=== PATIENT | female | born 1965 | race Caucasian/White ===

== ENCOUNTER 2016-11-23 11:33 | Day surgery (SDC) | payer OTHER ==
[2016-11-23] MEDS ORDERED: LR 1,000 ML IV ONE (12:00)
[2016-11-23] MEDS ORDERED: INDOMETHACIN 50 MG SUPP PR PRN (12:57)
--- NOTE | 2016-11-23 12:57 | PDGENHP ---
History & Physical Chief Complaint: iron deficiency anemia History of Present Illness: 51 year old female with PSC presents for evaluation of iron deficiency anemia as well as diarrhea. Diarrhea present for 3-6 months. >10 Bms some days. No nocturnal bowel movements Pertinent Past, Social, Family History: PMHx: DM, PSC Relevant Physical Exam: HEENT: anicteric sclera. CV: RRR +s1s2. Lungs :CTAB. Abd; soft, nt, + bs Cardiorespiratory Assessment: asa 3
--- NOTE | 2016-11-23 12:59 | PDANEPAE ---
ANE History of Present Illness EGD/colonoscopy for anemia/diarrhea/reflux ANE Past Medical History - Cardiovascular History Hx Hypertension: No Hx Arrhythmias: No Hx Chest Pain: No Hx Coronary Artery / Peripheral Vascular Disease: No Hx CHF / Valvular Disease: No Hx Palpitations: No - Pulmonary History Hx COPD: No Hx Asthma/Reactive Airway Disease: No Hx Recent Upper Respiratory Infection: No Hx Oxygen in Use at Home: No Hx Sleep Apnea: No Sleep Apnea Screening Result - Last Documented: Negative - Neurologic History Hx Cerebrovascular Accident: No Hx Seizures: No Hx Dementia: No - Endocrine History Hx Diabetes: No - Renal History Hx Renal Disorders: No - Liver History Hx Hepatic Disorders: No - Neurological & Psychiatric Hx Hx Neurological and Psychiatric Disorders: Yes Neurological / Psychiatric History Comment: depression - Cancer History Hx Cancer: No - Congenital Disorder History Hx Congenital Disorders: No - GI History Hx Gastrointestinal Disorders: Yes Gastrointestinal History Comment: reflux. diarrhea - Other Health History Other Health History: none - Chronic Pain History Chronic Pain: No - Surgical History Prior Surgeries: appy. tonsillectomy. wisdom teeth ANE Review of Systems Review of Systems: - Exercise capacity METS (RN): 4 METS ANE Patient History - Allergies Allergies/Adverse Reactions: No Known Allergies Allergy (Verified 09/29/16 16:51) - Home Medications Home medications: home medication list seen and reviewed Home Medications: Citalopram 09/29/16 [Last Taken 11/21/16] Estradiol 09/29/16 [Last Taken 11/21/16] - NPO status NPO Status: no food or drink >8 hours NPO Since - Liquids (Date): 11/23/16 NPO Since - Liquids (Time): 05:00 NPO Since - Solids (Date): 11/21/16 NPO Since - Solids (Time): 19:00 - Anes Hx Anes Hx: no prior problems - Smoking Hx Smoking Status: Never smoked - Alcohol Use Alcohol Use: None - Family Anes Hx Family Anes Hx: none Family Hx Anesthesia Complications: none ANE Labs/Vital Signs - Vital Signs Blood Pressure: 127/71 Heart Rate: 80 Respiratory Rate: 16 O2 Sat (%): 94 Height: 165.1 cm Weight: 127.006 kg ANE Physical Exam - Airway Neck exam: FROM Mallampati Score: Class 1 Mouth exam: normal dental/mouth exam - Pulmonary Pulmonary: no respiratory distress - Cardiovascular Cardiovascular: regular rate and rhythym - ASA Status ASA Status: I ANE Anesthesia Plan Anesthesia Plan: GA with mask (Propofol)
[2016-11-23] MEDS ORDERED: NS 500 ML IV SCH (13:00)
[2016-11-23] MEDS ORDERED: fentaNYL 100 MCG/2 ML INJ ONE (13:02)
[2016-11-23] MEDS ORDERED: PROPOFOL/EMULSION 500 MG/50 ML BOTTLE IV ONE (13:03)
[2016-11-23] MEDS ORDERED: LIDOCAINE 2% 100 MG/5 ML SYR ONE (13:04)
--- NOTE | 2016-11-23 13:20 | GIREPORT ---
[facility] - Endoscopy Department Patient Name: Ann Salazar Procedure Date: 11/23/2016 1:06 PM Patient Type: Outpatient Attending MD/ ER Physician: Josh Donnelly MD Procedure: Upper GI endoscopy Indications: Iron deficiency anemia, Diarrhea Patient Profile: 51 year old female presents for evaluation of iron deficiency anemia as well as diarrhea. Providers: Josh Donnelly MD Medicines: Monitored Anesthesia Care Complications: No immediate complications. Estimated blood loss: Minimal. Description of Procedure: After obtaining informed consent, the endoscope was passed under direct vision. Throughout the procedure, the patient's blood pressure, pulse, and oxygen saturations were monitored continuous ly. The Endoscope was introduced through the mouth, and advanced to the second part of duodenum. The upper GI endoscopy was accomplished without difficulty. The patient tolerated the procedure well . Findings: Grade II varices were found in the lower third of the esophagus. They were medium in size. A small hiatal hernia was present. Patchy mildly erythematous mucosa was found in the gastric body and in the gastric antrum. Biops ies were taken with a cold forceps for histology. The examined duodenum was normal. Biopsies for histology were taken with a cold forceps for evaluation of celiac disease. Estimated Blood Loss: Estimated blood loss was minimal. Post Op Diagnosis: - Grade II esophageal varices. Treatment not successful. - Small hiatal hernia. - Erythematous mucosa in the gastric body and antrum. Biopsied. - Normal examined duodenum. Biopsied. - Etiology? No cause of anemia seen. Await biopsy results. Proceed with colonoscopy. Needs repeat EGD in 6 weeks for banding. Will discuss with patient. Recommendation: - Perform a colonoscopy today. - Repeat upper endoscopy in 6 weeks for endoscopic band ligation. - Await pathology results. - Thank you for allowing me to participate in the care of your patient. Attending Participation: I personally performed the entire procedure. Josh Donnelly MD Josh Donnelly MD 11/23/2016 1:20:07 PM Number of Addenda: 0 Note Initiated On: 11/23/2016 1:06 PM [email or web address]
[2016-11-23] MEDS ORDERED: ONDANSETRON 4 MG/2 ML VIAL IVP PRN (13:27)
[2016-11-23] MEDS ORDERED: NALOXONE HCL 0.4 MG/ML INJ IVP PRN (13:27)
[2016-11-23] MEDS ORDERED: fentaNYL 100 MCG/2 ML INJ IVP PRN (13:27)
[2016-11-23] MEDS ORDERED: DEXAMETHASONE 4 MG/ML VIAL IVP PRN (13:27)
[2016-11-23] MEDS ORDERED: ACETAMINOPHEN 500 MG TAB PO PRN (13:27)
[2016-11-23] MEDS ORDERED: ALBUTEROL 3 ML DEYVIAL IH PRN (13:27)
[2016-11-23] MEDS ORDERED: PROMETHAZINE HCL 25 MG/ML INJ IVP PRN (13:27)
[2016-11-23] MEDS ORDERED: MEPERIDINE 25 MG/ML SYR IVP PRN (13:27)
[2016-11-23] MEDS ORDERED: LABETALOL HCL 50 MG/10 ML SYR IVP PRN (13:27)
[2016-11-23] MEDS ORDERED: LR 500 ML IV PRN (13:27)
[2016-11-23] MEDS ORDERED: METOCLOPRAMIDE 10 MG/2 ML VIAL IVP PRN (13:27)
[2016-11-23 13:55] VITALS: PULSE 73
--- NOTE | 2016-11-23 14:00 | GIREPORT ---
[facility] Surgical Services - Endoscopy Department Patient Name: Ann Salazar Procedure Date: 11/23/2016 12:55 PM Patient Type: Outpatient Attending MD/ ER Physician: Josh Donnelly MD Procedure: Colonoscopy Indications: Clinically significant diarrhea of unexplained origin, Iron deficiency anemia Patient Profile: 51 year old female presents for evaluation of iron deficiency anemia as well as diarrhea. Providers: Josh Donnelly MD Medicines: Monitored Anesthesia Care Complications: No immediate complications. Estimated blood loss: Minimal. Description of Procedure: After obtaining informed consent, the scope was passed under direct vision. Throughout the proce dure, the patient's blood pressure, pulse, and oxygen saturations were monitored continuously. The Colonoscope was introduced through the anus and advanced to the terminal ileum. The colonoscopy was performed without difficulty. The patient tolerated the procedure well. The quality of the bowel preparation was adequate to identify polyps 6 mm and larger in size. The terminal ileum, ileocec al valve, appendiceal orifice, and rectum were photographed. Findings: The perianal and digital rectal examinations were normal. Pertinent negatives include no palpabl e rectal lesions. The terminal ileum appeared normal. Biopsies were taken with a cold forceps for histology. Three sessile polyps were found in the sigmoid colon, descending colon and ascending colon. The polyps were 3 to 4 mm in size. These polyps were removed with a cold snare. Resection and retrie tameka were complete. Biopsies for histology were taken with a cold forceps for evaluation of microscopic colitis. Estimated Blood Loss: Estimated blood loss was minimal. Post Op Diagnosis: - The examined portion of the ileum was normal. Biopsied. - Three 3 to 4 mm polyps in the sigmoid colon, in the descending colon and in the ascending colon, removed with a cold snare. Resected and retriev ed. - Biopsies were taken with a cold forceps for evaluation of microscopic colitis. Recommendation: - Discharge patient to home (with escort). - Resume previous diet. - Continue present medications. - Repeat colonoscopy in 3 years for surveillance. - Thank you for allowing me to participate in the care of your patient. Attending Participation: I personally performed the entire procedure. Josh Donnelly MD Josh Donnelly MD 11/23/2016 2:00:06 PM Number of Addenda: 0 Note Initiated On: 11/23/2016 12:55 PM Total Procedure Duration Time 0 hours 18 minutes 35 seconds [email or web address]}
[2016-11-23 14:07] VITALS: TEMP 97.7
--- NOTE | 2016-11-23 14:18 | POSTANESTH ---
Post Anesthetic Evaluation Cardiovascular Status: Normal, Stable Respiratory Status: Normal, Stable Level of Consciousness/Mental Status: Can Participate in Eval, Mildly Sleepy, Arousable Pain Control: Adequate, Prn Tx Ordered Nausea/Vomiting Control: Adequate, Prn Tx Ordered Complications Possibly Related to Anesthesia: None Noted
[2016-11-23 14:33] VITALS: BP 119/73; RESP 16
[2016-11-23 15:03] VITALS: O2SAT 95
== END 2016-11-23 15:04 | disposition home or self-care (01) ==
LOC: FSGY 11:33
PROVIDERS: ATTEND Internal Medicine Gastroenterology
PROC: 0DBK8ZX Excision of Ascending Colon, Via Natural or Artificial Opening Endoscopic, Diagnostic (ICD-10-PCS; principal; 2016-11-23 13:00)
PROC: 0DBE8ZX Excision of Large Intestine, Via Natural or Artificial Opening Endoscopic, Diagnostic (ICD-10-PCS; principal; 2016-11-23 13:00)
PROC: 0DB68ZX Excision of Stomach, Via Natural or Artificial Opening Endoscopic, Diagnostic (ICD-10-PCS; principal; 2016-11-23 13:00)
PROC: 0DBM8ZX Excision of Descending Colon, Via Natural or Artificial Opening Endoscopic, Diagnostic (ICD-10-PCS; principal; 2016-11-23 13:00)
PROC: 0DBN8ZX Excision of Sigmoid Colon, Via Natural or Artificial Opening Endoscopic, Diagnostic (ICD-10-PCS; principal; 2016-11-23 13:00)
PROC: 0DB98ZX Excision of Duodenum, Via Natural or Artificial Opening Endoscopic, Diagnostic (ICD-10-PCS; principal; 2016-11-23 13:00)
PROC: 0DBB8ZX Excision of Ileum, Via Natural or Artificial Opening Endoscopic, Diagnostic (ICD-10-PCS; principal; 2016-11-23 13:00)
DX: D12.2 Benign neoplasm of ascending colon (principal); D12.4 Benign neoplasm of descending colon; D12.5 Benign neoplasm of sigmoid colon; D50.9 Iron deficiency anemia, unspecified; R19.7 Diarrhea, unspecified; K83.0 Cholangitis; K44.9 Diaphragmatic hernia without obstruction or gangrene; E11.9 Type 2 diabetes mellitus without complications
CPT/HCPCS: J2001; J2704; J3010

== ENCOUNTER 2017-01-11 09:59 | Day surgery (SDC) | payer OTHER ==
[2017-01-11] MEDS ORDERED: LR 1,000 ML IV ONE (10:31)
[2017-01-11 10:42] VITALS: PULSE 85
--- NOTE | 2017-01-11 11:35 | PDANEPAE ---
ANE History of Present Illness primary biliary cholangitis, for esophageal varices therapy ANE Past Medical History - Cardiovascular History Hx Hypertension: No Hx Arrhythmias: No Hx Chest Pain: No Hx Coronary Artery / Peripheral Vascular Disease: No Hx CHF / Valvular Disease: No Hx Palpitations: No - Pulmonary History Hx COPD: No Hx Asthma/Reactive Airway Disease: No Hx Recent Upper Respiratory Infection: No Hx Oxygen in Use at Home: No Hx Sleep Apnea: No Sleep Apnea Screening Result - Last Documented: Negative Pulmonary History Comment: hx of snoring, negative S02 sat study about six months - Neurologic History Hx Cerebrovascular Accident: No Hx Seizures: No Hx Dementia: No - Endocrine History Hx Diabetes: No Hypothyroid: No Obesity: severe - Renal History Hx Renal Disorders: No - Liver History Hx Hepatic Disorders: No - Neurological & Psychiatric Hx Hx Neurological and Psychiatric Disorders: Yes Neurological / Psychiatric History Comment: depression - Cancer History Hx Cancer: No - Congenital Disorder History Hx Congenital Disorders: No - GI History GERD: moderate Hx Gastrointestinal Disorders: Yes Gastrointestinal History Comment: reflux. diarrhea - Other Health History Other Health History: none - Chronic Pain History Chronic Pain: No - Surgical History Prior Surgeries: EGD/COLONOSCOPY WITH BX'S. appy. tonsillectomy. wisdom teeth ANE Review of Systems Review of Systems: - Exercise capacity METS (RN): 4 METS ANE Patient History - Allergies Allergies/Adverse Reactions: No Known Allergies Allergy (Verified 09/29/16 16:51) - Home Medications Home Medications: Citalopram HS 09/29/16 [Last Taken 01/10/17 19:00] Estradiol HS 09/29/16 [Last Taken 01/10/17 19:00] Multivitamin DAILY 12/22/16 [Last Taken 01/10/17 19:00] Omeprazole HS 12/22/16 [Last Taken 01/10/17 19:00] - NPO status NPO Since - Liquids (Date): 01/10/17 NPO Since - Liquids (Time): 16:00 NPO Since - Solids (Date): 01/10/17 NPO Since - Solids (Time): 16:00 - Anes Hx Anes Hx: no prior problems - Smoking Hx Smoking Status: Never smoked - Alcohol Use Alcohol Use: None - Family Anes Hx Family Anes Hx: none Family Hx Anesthesia Complications: none ANE Labs/Vital Signs - Vital Signs Blood Pressure: 130/76 Heart Rate: 85 Respiratory Rate: 16 O2 Sat (%): 92 Height: 165.1 cm Weight: 129.274 kg ANE Physical Exam - Airway Neck exam: FROM Mallampati Score: Class 3 Mouth exam: normal dental/mouth exam - Pulmonary Pulmonary: no rales or rhonchi - Cardiovascular Cardiovascular: regular rate and rhythym - ASA Status ASA Status: III ANE Anesthesia Plan Anesthesia Plan: GA with mask
[2017-01-11] MEDS ORDERED: fentaNYL 100 MCG/2 ML INJ ONE (11:40)
[2017-01-11] MEDS ORDERED: PROPOFOL 200 MG/20 ML VIAL ONE ×2 (11:41)
[2017-01-11] MEDS ORDERED: RANITIDINE 50 MG/2 ML VIAL ONE (12:03)
[2017-01-11] MEDS ORDERED: INDOMETHACIN 50 MG SUPP PR PRN (12:28)
--- NOTE | 2017-01-11 12:28 | PDGENHP ---
History & Physical Chief Complaint: esophageal varices History of Present Illness: 51 year old female presents for esophageal banding. Pertinent Past, Social, Family History: PMHx: PBC with cirrhosis Relevant Physical Exam: HEENT: anicteric. Cv: RRR +s1s2. Lungs: CTAB. Abd: soft, nt, + bs Cardiorespiratory Assessment: ASA 3
[2017-01-11] MEDS ORDERED: NS 500 ML IV SCH (12:30)
[2017-01-11] MEDS ORDERED: NALOXONE HCL 0.4 MG/ML INJ IVP PRN (12:41)
--- NOTE | 2017-01-11 13:12 | GIREPORT ---
[facility] Surgical Services - Endoscopy Department Patient Name: Ann Salazar Procedure Date: 01/11/2017 12:19 PM Patient Type: Outpatient Attending MD/ ER Physician: Josh Donnelly MD Procedure: Upper GI endoscopy Indications: 1st degree variceal eradication (no prior bleeding) Patient Profile: 51 year old female with a history of PBC with liver cirrhosis presents for esophageal banding (known esophageal varices). Providers: Josh Donnelly MD Medicines: Monitored Anesthesia Care Complications: No immediate complications. Estimated blood loss: None. Description of Procedure: After obtaining informed consent, the endoscope was passed under direct vision. Throughout the procedure, the patient's blood pressure, pulse, and oxygen saturations were monitored continuously. The Endoscope was intro duced through the mouth, and advanced to the second part of duodenum. [facility] GI endoscopy was accomplished without difficulty. The patient tolerated th e procedure well. Findings: Grade II varices were found in the lower third of the esophagus. They w ere medium in size with 5 bands. Five bands were successfully placed with complete eradication, resulting in deflation of varices. There was no bleeding during the procedure. Patchy mildly erythematous mucosa was found in the gastric body and in the gastric antrum. This was biopsied previously. The examined duodenum was normal. Estimated Blood Loss: Estimated blood loss: none. Post Op Diagnosis: - Grade II esophageal varices. Completely eradicated. Banded. - Erythematous mucosa in the gastric body and antrum. - Normal examined duodenum. - No specimens collected. Recommendation: - Discharge patient to home (with escort). - Resume previous diet. - Continue present medications. - Repeat upper endoscopy in 3 weeks for endoscopic band ligation. - Thank you for allowing me to participate in the care of your patient. Attending Participation: I personally performed the entire procedure. Josh Donnelly MD Josh Donnelly MD 01/11/2017 1:11:51 PM This report has been signed electronicallyJosh Donnelly MD Number of Addenda: 0 Note Initiated On: 01/11/2017 12:19 PM [email or web address]}
[2017-01-11] MEDS ORDERED: fentaNYL 100 MCG/2 ML INJ IVP PRN (13:24)
[2017-01-11] MEDS ORDERED: OXYCODONE/APAP 5/325 TAB PO PRN (13:24)
[2017-01-11] MEDS ORDERED: HYDROCODONE/APAP 5/325 TAB PO PRN (13:24)
[2017-01-11] MEDS ORDERED: HYDROCODONE/APAP 5/325 TAB ONE (13:28)
--- NOTE | 2017-01-11 13:38 | POSTANESTH ---
Post Anesthetic Evaluation Cardiovascular Status: Normal, Stable Respiratory Status: Normal, Stable Level of Consciousness/Mental Status: Can Participate in Eval Pain Control: Adequate, Prn Tx Ordered Nausea/Vomiting Control: Adequate, Prn Tx Ordered Complications Possibly Related to Anesthesia: None Noted
[2017-01-11 13:47] VITALS: BP 107/79
[2017-01-11 13:58] VITALS: RESP 18
[2017-01-11 14:03] VITALS: TEMP 98.8; O2SAT 92
== END 2017-01-11 14:11 | disposition home or self-care (01) ==
LOC: FSGY 09:59
PROVIDERS: ATTEND Internal Medicine Gastroenterology
PROC: 06L38CZ Occlusion of Esophageal Vein with Extraluminal Device, Via Natural or Artificial Opening Endoscopic (ICD-10-PCS; principal; 2017-01-11 11:45)
DX: I85.00 Esophageal varices without bleeding (principal); K83.0 Cholangitis; K21.9 Gastro-esophageal reflux disease without esophagitis; E66.01 Morbid (severe) obesity due to excess calories; Z68.42 Body mass index [BMI] 45.0-49.9, adult
CPT/HCPCS: J2704; J2780; J3010

== ENCOUNTER 2017-02-22 14:25 | Day surgery (SDC) | payer OTHER ==
[2017-02-22] MEDS ORDERED: LIDOCAINE 1% 2 ML INJ ID PRN (14:48)
[2017-02-22] MEDS ORDERED: LR 1,000 ML IV ONE (14:48)
[2017-02-22 14:56] VITALS: PULSE 78
[2017-02-22] MEDS ORDERED: NS 500 ML IV SCH (15:30)
[2017-02-22] MEDS ORDERED: INDOMETHACIN 50 MG SUPP PR PRN (15:30)
--- NOTE | 2017-02-22 15:30 | PDGENHP ---
History & Physical Chief Complaint: esophageal varices History of Present Illness: 52 year old female presents for evaluation of esophageal varices. Pertinent Past, Social, Family History: PMHx: Cirrhosis Relevant Physical Exam: HEENT: anicteric. Cv: RRR +s1s2. Lungs: CTAB. Abd: soft, nt, + bs. No g/r Cardiorespiratory Assessment: ASA 3
--- NOTE | 2017-02-22 15:32 | PDANEPAE ---
ANE History of Present Illness 52 yo for egd/banding ANE Past Medical History - Cardiovascular History Hx Hypertension: No Hx Arrhythmias: No Hx Chest Pain: No Hx Coronary Artery / Peripheral Vascular Disease: No Hx CHF / Valvular Disease: No Hx Palpitations: No - Pulmonary History Hx COPD: No Hx Asthma/Reactive Airway Disease: No Hx Recent Upper Respiratory Infection: No Hx Oxygen in Use at Home: No Hx Sleep Apnea: No Sleep Apnea Screening Result - Last Documented: Negative Pulmonary History Comment: hx of snoring, negative S02 sat study about six months - Neurologic History Hx Cerebrovascular Accident: No Hx Seizures: No Hx Dementia: No - Endocrine History Hx Diabetes: No - Renal History Hx Renal Disorders: No - Liver History Hx Hepatic Disorders: No - Neurological & Psychiatric Hx Hx Neurological and Psychiatric Disorders: Yes Neurological / Psychiatric History Comment: depression - Cancer History Hx Cancer: No - Congenital Disorder History Hx Congenital Disorders: No - GI History Hx Gastrointestinal Disorders: Yes Gastrointestinal History Comment: reflux. diarrhea - Other Health History Other Health History: none - Chronic Pain History Chronic Pain: No - Surgical History Prior Surgeries: EGD/BANDING OF ESOPHAGEAL VARICES 12/2016. EGD/COLONOSCOPY WITH BX'S. appy. tonsillectomy. wisdom teeth ANE Review of Systems Review of Systems: - Exercise capacity METS (RN): 4 METS ANE Patient History - Allergies Allergies/Adverse Reactions: No Known Allergies Allergy (Verified 02/19/17 16:25) - Home Medications Home Medications: Citalopram PO HS 09/29/16 [Last Taken 02/21/17 20:30] Estradiol PO HS 09/29/16 [Last Taken 02/21/17 20:30] Multivitamin PO DAILY 12/22/16 [Last Taken 02/21/17 20:30] Omeprazole PO HS 12/22/16 [Last Taken 02/21/17 20:30] - NPO status NPO Status: no food or drink >8 hours NPO Since - Liquids (Date): 02/22/17 NPO Since - Liquids (Time): 07:00 NPO Since - Solids (Date): 02/21/17 NPO Since - Solids (Time): 17:00 - Anes Hx Anes Hx: no prior problems - Smoking Hx Smoking Status: Never smoked - Family Anes Hx Family Hx Anesthesia Complications: none ANE Labs/Vital Signs - Vital Signs Blood Pressure: 117/67 Heart Rate: 78 Respiratory Rate: 20 O2 Sat (%): 94 Height: 5 ft 5 in Weight: 81.647 kg ANE Physical Exam - Airway Neck exam: FROM Mallampati Score: Class 2 - Pulmonary Pulmonary: no respiratory distress - Cardiovascular Cardiovascular: regular rate and rhythym - ASA Status ASA Status: II, III ANE Anesthesia Plan Anesthesia Plan: GA with mask
[2017-02-22] MEDS ORDERED: PROPOFOL/EMULSION 500 MG/50 ML BOTTLE IV ONE (15:33)
[2017-02-22] MEDS ORDERED: NALOXONE HCL 0.4 MG/ML INJ IVP PRN (15:46)
[2017-02-22] MEDS ORDERED: ONDANSETRON 4 MG/2 ML VIAL IVP PRN (15:46)
[2017-02-22] MEDS ORDERED: fentaNYL 100 MCG/2 ML INJ IVP PRN (15:46)
--- NOTE | 2017-02-22 16:17 | GIREPORT ---
[facility] Surgical Services - Endoscopy Department Patient Name: Ann Salazar Procedure Date: 02/22/2017 3:38 PM Patient Type: Outpatient Attending MD/ ER Physician: Josh Donnelly MD Procedure: Upper GI endoscopy Indications: Cirrhosis with suspected esophageal varices Patient Profile: 52 year old presents for eradication of known varices. Providers: Josh Donnelly MD Medicines: Monitored Anesthesia Care Complications: No immediate complications. Estimated blood loss: None. Description of Procedure: After obtaining informed consent, the endoscope was passed under direct vision. Throughout the procedure, the patient's blood pressure, pulse, and oxygen saturations were monitored continuously. The Endoscope was intro duced through the mouth, and advanced to the second part of duodenum. The [facility] er GI endoscopy was accomplished without difficulty. The patient tolerated th e procedure well. Findings: One large (> 5 mm) varix were found in the lower third of the esophagus . One band was successfully placed with complete eradication, resulting in deflation of varices. A hiatal hernia was present. The examined duodenum was normal. Estimated Blood Loss: Estimated blood loss: none. Post Op Diagnosis: - One large (> 5 mm) esophageal varices. Completely eradicated. Banded. - Hiatal hernia. - Normal examined duodenum. - No specimens collected. Recommendation: - Discharge patient to home (with escort). - Resume previous diet. - Continue present medications. - Repeat upper endoscopy in 2 months for surveillance. - Thank you for allowing me to participate in the care of your patient. Attending Participation: I personally performed the entire procedure. Josh Donnelly MD Josh Donnelly MD 02/22/2017 4:16:50 PM This report has been signed electronicallyJosh Donnelly MD Number of Addenda: 0 Note Initiated On: 02/22/2017 3:38 PM [email or web address]
[2017-02-22 16:27] VITALS: TEMP 97.7
[2017-02-22 17:00] VITALS: BP 143/81; RESP 14; O2SAT 96
== END 2017-02-22 16:55 | disposition home or self-care (01) ==
LOC: FSGY 14:25
PROVIDERS: ATTEND Internal Medicine Gastroenterology
PROC: 0W3P8ZZ Control Bleeding in Gastrointestinal Tract, Via Natural or Artificial Opening Endoscopic (ICD-10-PCS; principal; 2017-02-22 16:15)
DX: I85.00 Esophageal varices without bleeding (principal); K44.9 Diaphragmatic hernia without obstruction or gangrene
CPT/HCPCS: J2704

== ENCOUNTER → 2018-05-24 | Outpatient (CLI) | payer OTHER | LOC: FIMAGING 10:07 | PROVIDERS: ATTEND Internal Medicine | DX: K74.3 Primary biliary cirrhosis (principal); R93.421 Abnormal radiologic findings on diagnostic imaging of right kidney ==